=== PATIENT | male | born 1990 | race Caucasian/White ===

== ENCOUNTER 2024-11-15 08:21 | Emergency (ER) | payer SELFPAY ==
--- NOTE | 2024-11-15 08:28 | ED_ITS ---
HPI - URI/Sore Throat General Chief Complaint: Upper Respiratory Infection Stated Complaint: sinus issues Time Seen by Provider: 11/15/24 08:34 Source: patient Mode of arrival: ambulatory Limitations: no limitations History of Present Illness HPI Narrative: Miguel is a 34-year-old male patient presenting to the clinic today with complaints of possible sinus infection. He reports he has had sinus congestion, pressure, cough, and developed some chest congestion over the past 2 weeks. Two weeks ago he tested positive for COVID. Was seen in the ER and had a chest x- ray done and some labs done. States the chest x-ray was negative for any pneumonia at that time. States his potassium levels low so they gave him some potassium pills and a Z-Ye. States that he did feel better for few days however symptoms have now come back with a sinus congestion and occasional fevers. Highest fever was 101 ? F. denies any shortness of breath or chest pain at this time. Has been taking vitamin B12, vitamin-C, increasing fluids, Benadryl, and ibuprofen for his symptoms. Review of Systems Review of Systems: Pertinent positives per HPI. Patient denies any rash, visual changes, dizziness, shortness of breath, chest pain, palpitations, nausea, vomiting, diarrhea, constipation, abdominal pain, or any urinary issues. PMFSH Comments At the time of my signature, I reviewed and agree with the nursing past medical, surgical, social, and family history. There is no relevant family history pertinent to the patient complaint. Exam Narrative: General: Well-developed, well nourished, in no apparent distress Head: Normocephalic, atraumatic Eyes: Pupils equally round and reactive to light bilaterally, EOM intact, sclera and conjunctive clear, no discharge, lids normal Ears: TMs intact and congested, ear canals clear, no drainage, grossly hearing normal. Nose: Nares patent, green nasal discharge, moderate inflammation, dried blood noted to the right anterior nare, maxillary and frontal sinus tenderness. Mouth: Oral pharynx without lesions or masses, good dentition, MMM. Neck: Supple, trachea midline, no enlargement of anterior or posterior cervical nodes, no thyroid masses or goiter palpable. Cardio: Regular rate and rhythm, s1 and s2 normal, no murmur appreciated. Resp: Clear to auscultation bilaterally, no rhonchi, rales, wheezing or rubs Course Course Emergency Course: Portions of this record may have been created with voice recognition software. Level of Care: Express Care Visit Vital Signs Vital signs: Vital Signs Temperature 36.9 C 11/15/24 08:32 Pulse Rate 82 11/15/24 08:32 Respiratory Rate 20 11/15/24 08:32 Blood Pressure 140/94 H 11/15/24 08:32 Pulse Oximetry 97 11/15/24 08:32 Oxygen Delivery Room Air 11/15/24 08:32 Temperature 36.9 C 11/15/24 08:32 Pulse Rate 82 11/15/24 08:32 Respiratory Rate 20 11/15/24 08:32 Blood Pressure 140/94 H 11/15/24 08:32 Pulse Oximetry 97 11/15/24 08:32 Oxygen Delivery Room Air 11/15/24 08:32 Vital signs reviewed MDM - URI/Sore Throat MDM Narrative Medical decision making narrative: At the time of visit patient is resting comfortably on the exam table. Patient appears to be nontoxic. complaints of possible sinus infection. He reports he has had sinus congestion, pressure, cough, and developed some chest congestion over the past 2 weeks. Two weeks ago he tested positive for COVID. Was seen in the ER and had a chest x-ray done and some labs done. States the chest x-ray was negative for any pneumonia at that time. States his potassium levels low so they gave him some potassium pills and a Z-Ye. States that he did feel better for few days however symptoms have now come back with a sinus congestion and occasional fevers. Highest fever was 101 ? F. denies any shortness of breath or chest pain at this time. Has been taking vitamin B12, vitamin-C, increasing fluids, Benadryl, and ibuprofen for his symptoms. Denies any pain currently. Vital signs are stable-heart rate slightly elevated-no history of hypertension. Does not take any regular home meds. On exam patient has bilateral TM congestion, nares patent but does have moderate anterior turbinate inflammation with some dried blood noted in the right nare, maxillary and frontal sinus tenderness, oral pharynx mildly red with postnasal drip, lung sounds are clear, heart rates regular rate and rhythm. Plan: I suspect patient has acute bacterial rhinosinusitis. Prescription for Augmentin and prednisone was sent to the pharmacy. Supportive measures were discussed with the patient and they voiced understanding discharge instructions and agrees to treatment plan. Return precautions reviewed Differential Diagnosis Differential diagnosis: Likely upper respiratory infection, otitis media, sinusitis, viral infection, bronchitis, influenza, pharyngitis and other (COVID) Discharge Plan Discharge Clinical Impression: Acute bacterial rhinosinusitis Patient Disposition: Home Condition: Stable Instructions: Antibiotic Form, Rhinosinusitis (ED) Additional Instructions: Take prescription medications only as prescribed-Augmentin and prednisone Increase fluids and stay well hydrated May take Tylenol or motrin as directed on bottle for pain/fever May use Flonase 1 spray in each nare daily May take OTC antihistamines such as Zyrtec or Claritin daily as directed on bottle May apply Vicks vapor rub to chest to open sinuses Sinus rinses for congestion Cepacol spray, cough drops, throat lozenges, warm tea with honey/lemon, gargle salt water to soothe throat BRAT diet for diarrhea Clear liquids x 24 hours then advance as tolerated for nausea/vomiting Go to the ED if you develop a worsening in your condition- high fever not controlled by Tylenol or Motrin, dehydration, weakness, lethargy, shortness of breath, or chest pain. Follow up with your PCP in 3-5 days if symptoms persist. Patient Language: Kiswahili Prescriptions: New prednisone 20 mg tablet 40 mg PO DAILY 5 Days Qty: 10 0RF amoxicillin-pot clavulanate 875-125 mg tablet 1 tablet PO Q12H 10 Days Qty: 20 0RF Follow-up/Referrals: UNKNOWN,DOCTOR [Primary Care Provider] Time of Disposition: 08:42 Quality NIHSS Nursing Documentation ED NIHSS nursing documentation: reviewed/agree
[2024-11-15 08:32] VITALS: BP 140/94; PULSE 82; RESP 20; TEMP 36.9; O2SAT 97
== END 2024-11-15 08:55 | disposition home or self-care (01) ==
PROVIDERS: Emergency Provider Nurse Practitioner Family
DX: J01.90 Acute sinusitis, unspecified (principal); B96.89 Other specified bacterial agents as the cause of diseases classified elsewhere
CPT/HCPCS: 99203; G0463